=== PATIENT | female | born 1990 | race Two or more races ===

== ENCOUNTER 2020-03-19 20:39 | Inpatient (IN) | payer BC ==
[~2020-03-19] VITALS: Ht 162.6 cm; Wt 94.0 kg
[2020-03-19] MEDS ORDERED: OXYTOCIN 30U/ 0.9% NaCL 500ML 500 ML IV PRN (21:12)
[2020-03-19] MEDS ORDERED: OXYTOCIN 30U/ 0.9% NaCL 500ML 500 ML IV ONE (21:12)
[2020-03-19] MEDS ORDERED: ONDANSETRON 2MG/ML, 2ML IVPush PRN (21:30)
[2020-03-19] MEDS ORDERED: CALCIUM CARBONATE 500 MG TAB.CHEW PO PRN (21:30)
[2020-03-19] MEDS ORDERED: TERBUTALINE 1 MG/ML, 1ML SQ PRN (21:30)
[2020-03-19] MEDS ORDERED: TERBUTALINE 1 MG/ML, 1ML IVPush PRN (21:30)
[2020-03-19] MEDS ORDERED: OXYTOCIN 30U/ 0.9% NaCL 500ML 500 ML ONE (21:46)
[2020-03-19] MEDS ORDERED: NEWBORN KIT ONE (21:48)
[2020-03-19] MEDS ORDERED: MISOPROSTOL 200 MCG TABLET ONE (21:48)
[2020-03-19 22:20] LABS: BASOPHILS # (AUTO) 0.05 x10^3/uL (0-0.1); BASOPHILS % (AUTO) 0 % (0-1); EOSINOPHILS # (AUTO) 0.06 x10^3/uL (0-0.4); EOSINOPHILS % (AUTO) 0 % (1-7); LYMPHOCYTES # (AUTO) 2.11 x10^3/uL (1-3.4); LYMPHOCYTES % (AUTO) 14 % (22-44); MD NO; MEAN CORPUSCULAR HEMOGLOBIN 31.2 pg (27.0-34.8); MEAN CORPUSCULAR HGB CONC 33.7 g/dL (32.4-35.8); MEAN CORPUSCULAR VOLUME 92.7 fL (80-100); MEAN PLATELET VOLUME 11.2 fL (7.4-10.4); MONOCYTES # (AUTO) 0.66 x10^3/uL (0.2-0.8); MONOCYTES % (AUTO) 4 % (2-9); NEUTROPHILS # (AUTO) 12.09 x10^3/uL (1.8-6.8); NEUTROPHILS % (AUTO) 81 % (42-75); PLATELET COUNT 166 x10^3/uL (130-400); RED BLOOD COUNT 4.34 x10^6/uL (3.82-5.3); RED CELL DISTRIBUTION WIDTH 13.9 % (9.6-15.2)
[2020-03-19] MEDS: LACTATED RINGERS 1,000 ML IV SCH (22:45)
[2020-03-20] MEDS: LACTATED RINGERS 1,000 ML IV SCH ×4 (08:02→17:57)
[2020-03-20] MEDS ORDERED: ONDANSETRON 2MG/ML, 2ML ONE (09:41)
[2020-03-20] MEDS ORDERED: FENTANYL PF 100 MCG/2ML ONE ×4 (12:59→16:35)
[2020-03-20] MEDS: FENTANYL PF 100 MCG/2ML IVPush PRN ×3 (13:02→15:26)
[2020-03-20] MEDS ORDERED: FENTANYL/BUPIV./NS/PF 250 ML EPIDCONT SCH (15:27)
[2020-03-20] MEDS ORDERED: FENTANYL/BUPIV./NS/PF 250 ML EPIDCONT ONE (16:36)
[2020-03-20] MEDS ORDERED: BUPIVACAINE 0.25% ONE (16:36)
[2020-03-20] MEDS ORDERED: OXYTOCIN 30U/ 0.9% NaCL 500ML 500 ML ONE (20:21)
[2020-03-20] MEDS: OXYTOCIN 30U/ 0.9% NaCL 500ML 500 ML IV SCH (21:23)
[2020-03-20] MEDS ORDERED: METHYLERGONOVINE 0.2 MG/ML IM PRN (21:30)
[2020-03-20] MEDS ORDERED: CARBOPROST TROMETHAMINE 250 MCG/ML, 1ML IM PRN (21:30)
[2020-03-20] MEDS ORDERED: SIMETHICONE 80 MG CHEW TAB PO PRN (21:30)
[2020-03-20] MEDS ORDERED: METOCLOPRAMIDE 5 MG/ML, 2ML IV PRN (21:30)
[2020-03-20] MEDS ORDERED: ONDANSETRON 2MG/ML, 2ML IV PRN (21:30)
[2020-03-20] MEDS ORDERED: MISOPROSTOL 200 MCG TABLET PR PRN (21:30)
[2020-03-20] MEDS ORDERED: OXYcodone IR 5MG TABLET PO PRN (21:30)
[2020-03-20] MEDS ORDERED: ACETAMINOPHEN 325 MG TABLET PO PRN (21:30)
[2020-03-20] MEDS ORDERED: OXYcodone/APAP 5/325MG TABLET PO PRN (21:30)
[2020-03-20 22:30] VITALS: BP 105/67
[2020-03-21 04:00] VITALS: BP 95/60
[2020-03-21 04:23] LABS: MEAN CORPUSCULAR VOLUME 93.9 fL (80-100); MEAN PLATELET VOLUME 11.1 fL (7.4-10.4); PLATELET COUNT 148 x10^3/uL (130-400); RED BLOOD COUNT 3.58 x10^6/uL (3.82-5.3); RED CELL DISTRIBUTION WIDTH 13.6 % (9.6-15.2)
[2020-03-21] MEDS: IBUPROFEN 600 MG TABLET PO PRN ×4 (04:34→23:58)
[2020-03-21 04:51] LABS: BASOPHILS # (AUTO) 0.09 x10^3/uL (0-0.1); BASOPHILS % (AUTO) 1 % (0-1); EOSINOPHILS # (AUTO) 0.02 x10^3/uL (0-0.4); EOSINOPHILS % (AUTO) 0 % (1-7); LYMPHOCYTES # (AUTO) 1.94 x10^3/uL (1-3.4); LYMPHOCYTES % (AUTO) 10 % (22-44); MD SCAN; MONOCYTES # (AUTO) 0.92 x10^3/uL (0.2-0.8); MONOCYTES % (AUTO) 5 % (2-9); NEUTROPHILS # (AUTO) 16.89 x10^3/uL (1.8-6.8); NEUTROPHILS % (AUTO) 85 % (42-75)
[2020-03-21] MEDS: OXYTOCIN 30U/ 0.9% NaCL 500ML 500 ML IV SCH (07:23)
[2020-03-21 07:40] VITALS: BP 107/69
[2020-03-21] MEDS: PRENATAL VIT/IRON/FA 1 EACH TABLET PO SCH (08:04)
[2020-03-21] MEDS: DOCUSATE 100 MG CAPSULE PO PRN ×2 (08:04→23:58)
[2020-03-21 12:15] VITALS: BP 104/68
[2020-03-21] MEDS: LACTATED RINGERS 1,000 ML IV SCH (13:12)
[2020-03-21 16:30] VITALS: BP 104/67
[2020-03-21 20:00] VITALS: BP 109/74
[2020-03-22] MEDS: PRENATAL VIT/IRON/FA 1 EACH TABLET PO SCH (07:49)
[2020-03-22] MEDS: DOCUSATE 100 MG CAPSULE PO PRN (07:49)
[2020-03-22] MEDS: IBUPROFEN 600 MG TABLET PO PRN ×2 (07:49→14:10)
[2020-03-22 08:14] VITALS: BP 114/77
[2020-03-22] MEDS ORDERED: SENN-52 PO (12:14)
[2020-03-22] MEDS ORDERED: IBUP-1223 PO (12:14)
== END 2020-03-22 14:15 | disposition home or self-care (01) | DRG 768 ==
LOC: LDOP 20:39 → LDIP 20:54 → 2NW 03-20 22:03
PROVIDERS: ADMIT Obstetrics & Gynecology; ATTEND Obstetrics & Gynecology
PROC: 10E0XZZ Delivery of Products of Conception, External Approach (ICD-10-PCS; principal; 2020-03-20)
PROC: 0DQR0ZZ Repair Anal Sphincter, Open Approach (ICD-10-PCS; 2020-03-20)
PROC: 3E0R3BZ Introduction of Anesthetic Agent into Spinal Canal, Percutaneous Approach (ICD-10-PCS; 2020-03-20)
PROC: 00HU33Z Insertion of Infusion Device into Spinal Canal, Percutaneous Approach (ICD-10-PCS; 2020-03-20)
DX: O70.20 Third degree perineal laceration during delivery, unspecified (principal); Z37.0 Single live birth; Z3A.39 39 weeks gestation of pregnancy
CPT/HCPCS: 36415; 85025; 86592; 86850; 86900; G0378; J2405; J3010; J2590; J7120